=== PATIENT | male | born 1985 | race American Indian/Alaskan Native ===

== ENCOUNTER 2017-05-15 08:39 | Emergency (ER) | payer OTHER ==
[2017-05-15] MEDS ORDERED: BOOSTRIX IM ONE (11:33)
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
[2017-05-15 12:18] LABS: Basophils % (Auto) 0.3 % (0.0-1.8); Eosinophils # (Auto) 0.1 K/mm3 (0.0-0.4); Eosinophils % (Auto) 1.1 % (0.0-4.3); Hematocrit 42.8 % (35.5-45.6); Hemoglobin 13.8 gm/dl (11.8-15.2); Lymphocytes % (Auto) 36.2 % (13.4-35.0); Mean Corpuscular HGB Conc 32 % (32-34); Mean Corpuscular Hemoglobin 28 pg (28-32); Mean Corpuscular Volume 86 fl (84-94); Monocytes # (Auto) 0.8 K/mm3 (0.0-0.8); Monocytes % (Auto) 14.2 % (0.0-7.3); Platelet Count 225 K/mm3 (140-440); Red Blood Count 4.98 M/mm3 (3.65-5.03); Red Cell Distribution Width 13.9 % (13.2-15.2)
[2017-05-15] MEDS ORDERED: MOTRIN PO ONE (12:26)
[2017-05-15 13:53] VITALS: BP 131/88
== END 2017-05-15 13:53 | disposition home or self-care (01) ==
LOC: ED 08:39
DX: S00.511A Abrasion of lip, initial encounter (principal); S13.4XXA Sprain of ligaments of cervical spine, initial encounter; R51 Headache; V49.49XA Driver injured in collision with other motor vehicles in traffic accident, initial encounter; Y93.89 Activity, other specified; Y92.89 Other specified places as the place of occurrence of the external cause; Y99.8 Other external cause status
CPT/HCPCS: 36415; 70450; 72125; 85025; 90471; 90715; 99284; G0480; 80320